=== PATIENT | female | born 2000 | race Caucasian/White ===

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

== ENCOUNTER 2019-01-06 09:02 | Emergency (ER) | payer BC, MEDICAID, OTHER ==
[2019-01-06 10:40] VITALS: BP 116/56
--- NOTE | 2019-01-06 11:10 | UC ---
Throat Pain/Nasal Wesley HPI - HPI Summary HPI Summary: 18-year-old female comes in with a 2 day history of sore throat. Pain is worse with swallowing. Some [id number] medicines to help some with the pain but then returns. Minimal rhinorrhea. No ear pain no cough no chest congestion no shortness of breath. Patient's had strep throat before and she states this feels like strep throat. - History of Current Complaint Chief Complaint: UCGeneralIllness Stated Complaint: ST Time Seen by Provider: 01/06/19 11:02 Hx Last Menstrual Period: 12/25/18 Pain Intensity: 5 - Allergies/Home Medications Allergies/Adverse Reactions: Allergies Allergy/AdvReac Type Severity Reaction Status Date / Time Penicillins Allergy Anaphylatic Verified 01/06/19 10:36 Shock Sulfa (Sulfonamide Allergy Anaphylatic Verified 01/06/19 10:36 Antibiotics) Shock ALL CILLINS Allergy Anaphylatic Uncoded 01/06/19 10:36 Shock Home Medications: Home Medications Ibuprofen TAB* [Advil TAB*] 200 mg PO Q6H PRN 01/06/19 [History Confirmed ] PMH/Surg Hx/FS Hx/Imm Hx Previously Healthy: Yes Other History Of: Negative For: Anticoagulant Therapy - Surgical History Surgical History: Yes Surgery Procedure, Year, and Place: right ACL - Family History Known Family History: Positive: Other - Vertigo Negative: Cardiac Disease, Hypertension, Diabetes - Social History Alcohol Use: None Substance Use Type: None Smoking Status (MU): Never Smoked Tobacco - Immunization History Vaccination Up to Date: Yes Review of Systems All Other Systems Reviewed And Are Negative: Yes Constitutional: Positive: Fever Skin: Positive: Negative Eyes: Positive: Negative ENT: Positive: Sore Throat, Nasal Discharge Respiratory: Positive: Negative Cardiovascular: Positive: Negative Gastrointestinal: Positive: Negative Motor: Positive: Negative Neurovascular: Positive: Negative Musculoskeletal: Positive: Negative Neurological: Positive: Negative Psychological: Positive: Negative Is Patient Immunocompromised?: No Physical Exam Triage Information Reviewed: Yes Appearance: No Pain Distress, Well-Nourished, Ill-Appearing - mild Vital Signs: Initial Vital Signs Temp 99.3 F 01/06/19 10:37 Pulse 105 01/06/19 10:37 Resp 15 01/06/19 10:37 BP 116/56 01/06/19 10:37 Pulse Ox 99 01/06/19 10:37 Vital Signs Reviewed: Yes Eye Exam: Normal Eyes: Positive: Conjunctiva Clear ENT: Positive: Pharyngeal erythema, TMs normal Neck exam: Normal Neck: Positive: Supple Respiratory: Positive: Lungs clear, Normal breath sounds, No respiratory distress Cardiovascular: Positive: Tachycardia Musculoskeletal Exam: Normal Musculoskeletal: Positive: Strength Intact, ROM Intact Neurological Exam: Normal Neurological: Positive: Alert, Muscle Tone Normal Psychological Exam: Normal Psychological: Positive: Age Appropriate Behavior Skin Exam: Normal Throat Pain/Nasal Course/Dx - Course Course Of Treatment: DISCUSSED VIRAL VERSES BACTERIAL INFECTION AND THE ROLE OF ANTIBIOTICS. THE PATIENT WISHES TO BE ON ANTIBIOTIC AT THIS TIME. - Differential Dx/Diagnosis Provider Diagnosis: Pharyngitis Discharge - Sign-Out/Discharge Documenting (check all that apply): Patient Departure All imaging exams completed and their final reports reviewed: No Studies - Discharge Plan Condition: Stable Disposition: HOME Prescriptions: Azithromyxin CHRISTIAN (NF) [Z-Christian (Zithromax) 250 mg tabs #6] 2 tab PO .TODAY, THEN 1 DAILY #6 tab Patient Education Materials: Pharyngitis (ED) Referrals: Jen Bauhg MD [Primary Care Provider] - Additional Instructions: FOLLOW UP WITH YOUR DOCTOR IF NOT COMPLETELY IMPROVED. GET RECHECKED FOR ANY WORSENING OF YOUR CONDITION OR QUESTIONS OR CONCERNS. - Billing Disposition and Condition Condition: STABLE Disposition: Home
== END 2019-01-06 11:14 | disposition home or self-care (01) ==
LOC: UCCORT 09:02
DX: J02.9 Acute pharyngitis, unspecified (principal); Z88.0 Allergy status to penicillin; Z88.2 Allergy status to sulfonamides; R09.89 Other specified symptoms and signs involving the circulatory and respiratory systems
CPT/HCPCS: 87651; 99212; G0463

== ENCOUNTER 2019-03-07 18:09 | Emergency (ER) | payer BC, MEDICAID ==
--- NOTE | 2019-03-07 18:46 | UC ---
Skin Complaint HPI - HPI Summary HPI Summary: 18 yo female presents with tick bite to left inner thigh. Noticed this morning. She removed it. Thinks it was on her since last night as she was outside a lot yesterday. Says the tick was not enlarged. Denies pain, fever - History of Current Complaint Time Seen by Provider: 03/07/19 18:46 Stated Complaint: TICK BITE Hx Obtained From: Patient Hx Last Menstrual Period: 12/25/18 Onset/Duration: Sudden Onset Current Severity: None - Allergy/Home Medications Allergies/Adverse Reactions: Allergies Allergy/AdvReac Type Severity Reaction Status Date / Time Penicillins Allergy Anaphylatic Verified 03/07/19 18:50 Shock Sulfa (Sulfonamide Allergy Anaphylatic Verified 03/07/19 18:50 Antibiotics) Shock ALL CILLINS Allergy Anaphylatic Uncoded 03/07/19 18:50 Shock Home Medications: Home Medications Bcp 1 tab PO DAILY 03/07/19 [History Confirmed 03/07/19] PMH/Surg Hx/FS Hx/Imm Hx - Additional Past Medical History Additional PMH: None Other History Of: Negative For: Anticoagulant Therapy - Surgical History Surgical History: Yes Surgery Procedure, Year, and Place: right ACL - Family History Known Family History: Positive: Other - Vertigo Negative: Cardiac Disease, Hypertension, Diabetes - Social History Occupation: Student Lives: With Family Alcohol Use: None Substance Use Type: None Smoking Status (MU): Never Smoked Tobacco - Immunization History Vaccination Up to Date: Yes Review of Systems All Other Systems Reviewed And Are Negative: Yes Constitutional: Positive: Negative Skin: Positive: Other - Tick bite Respiratory: Positive: Negative Cardiovascular: Positive: Negative Gastrointestinal: Positive: Negative Neurological: Positive: Negative Psychological: Positive: Negative Physical Exam - Summary Physical Exam Summary: GENERAL: NAD. WDWN. No pain distress. SKIN: Left anterior thigh: there is a 1.0cm diameter of mild erythema and edema with central 1mm area of superficial skin loss. No streaking, bleeding, or drainage. NECK: Supple. Nontender. No lymphadenopathy. CHEST: No accessory muscle use. Breathing comfortably and in no distress. CV: Pulses intact. Cap refill <2seconds NEURO: Alert. PSYCH: Age appropriate behavior. Triage Information Reviewed: Yes Vital Signs: Vital Signs: Temp Pulse Resp BP Pulse Ox 98.6 F 84 18 121/79 100 03/07/19 18:47 03/07/19 18:47 03/07/19 18:47 03/07/19 18:47 03/07/19 18:47 Vital Signs Reviewed: Yes Course/Dx - Course Course Of Treatment: Discussed that she is low risk for tick borne illness, but pt request prophylactic doxycycline treatment today. She was given 200mg in the clinic and advised to monitor for signs/symptoms of lyme and f/u if she develops these. - Diagnoses Provider Diagnosis: Tick bite Discharge - Sign-Out/Discharge Documenting (check all that apply): Patient Departure All imaging exams completed and their final reports reviewed: No Studies - Discharge Plan Condition: Stable Disposition: HOME Patient Education Materials: Tick Bite (ED) Referrals: Jen Baugh MD [Primary Care Provider] - Additional Instructions: If you develop a fever, shortness of breath, chest pain, new or worsening symptoms - please call your PCP or go to the ED. TICK BITE: You have been bitten by a tick. Once the tick is removed, these "bites" usually cause no problems. Tick fever, tick paralysis, [place] Spotted fever, and Lyme disease are uncommon -- but you should mention this tick bite to your doctor if you develop unusual symptoms in the next several weeks. If you develop any of the following, please see your physician promptly: (1) Fever, chills, or generalized malaise associated with a headache. (2) A red round area at the site of the bite (or elsewhere) (3) Joint pain, joint swelling or generalized weakness. (4) Redness, swelling, or drainage at the site of the bite. - Billing Disposition and Condition Condition: STABLE Disposition: Home
[2019-03-07 18:50] VITALS: BP 121/79
[2019-03-07] MEDS ORDERED: DOXYcycline CAP(*) 100 MG PO ONE (18:52)
== END 2019-03-07 19:00 | disposition home or self-care (01) ==
LOC: UCEAST 18:09
DX: S70.362A Insect bite (nonvenomous), left thigh, initial encounter (principal); W57.XXXA Bitten or stung by nonvenomous insect and other nonvenomous arthropods, initial encounter; Y92.9 Unspecified place or not applicable; Z88.0 Allergy status to penicillin; Z88.2 Allergy status to sulfonamides
CPT/HCPCS: 99212; A9270-GY; G0463

== ENCOUNTER 2021-06-21 02:03 | Inpatient (IN) ==
[2021-06-21 03:47] LABS: ABS Lymphocytes 1.7 10^3/ul (1.0-4.8); ABS Neutrophils 8.6 10^3/ul (1.5-7.7); Eosinophil % 0.3 %; Hematocrit 33 % (35-47); Hemoglobin 11.4 g/dL (12.0-16.0); Lymphocyte % 14.9 %; Mean Corpuscular HGB Conc 35 g/dL (31-36); Mean Corpuscular Hemoglobin 31 pg (27-31); Mean Corpuscular Volume 90 fL (80-97); Mean Platelet Volume 9.4 fL (7.4-10.4); Platelet Count 283 10^3/uL (150-450); Red Blood Count 3.63 10^6 /uL (3.70-4.87); Red Cell Distribution Width 14 % (10-15); White Blood Count 11.3 10^3/uL (3.5-10.8)
[2021-06-21] MEDS ORDERED: Buffered Lidocaine 1% SYRIN 1 ml INTRADERM ONE (04:00)
[2021-06-21] MEDS ORDERED: Lactated Ringers 1000 ml BAG 1,000 ML IV ONE ×2 (04:00→10:42)
[2021-06-21] MEDS ORDERED: Lactated Ringers 1000 ml BAG 1,000 ML IV SCH ×3 (04:00→22:00)
[2021-06-21 04:05] LABS: Albumin 3.6 g/dL (3.2-5.2); Albumin/Globulin Ratio 1.2 (1-3); Calcium 8.8 mg/dL (8.6-10.3); EGFR African American 180.1 (>60); EGFR Non-African American 148.9 (>60); Globulin 3.1 g/dL (2-4); Potassium 3.7 mmol/L (3.5-5.0); Total Bilirubin 0.3 mg/dL (0.2-1.0); Total Protein 6.7 g/dL (6.4-8.9)
[2021-06-21 04:06] LABS: Urine Benzodiazepine Screen None Detected (None Detect); Urine Opiates Screen None Detected (None Detect)
[2021-06-21] MEDS ORDERED: OBEPIDURAL 250 ML EPIDURAL ONE (09:42)
[2021-06-21] MEDS ORDERED: Phenylephrine 40 mcg/mL 10mL (400mcg) SYRINGE IV PUSH PRN ×2 (10:42)
[2021-06-21] MEDS ORDERED: Sodium Citrate/Citric Acid LIQ 15 ML UDC PO PRN (10:42)
[2021-06-21] MEDS ORDERED: OBEPIDURAL 250 ML EPIDURAL SCH (11:00)
[2021-06-21 11:31] LABS: Urine Appearance Cloudy; Urine Bilirubin Negative (Negative); Urine Blood Negative (Negative); Urine Color Straw; Urine Glucose Negative (Negative); Urine Ketones Negative (Negative); Urine Nitrite Negative (Negative); Urine Protein Negative (Negative); Urine Specific Gravity 1.006 (1.002-1.030); Urine Urobilinogen Negative (Negative)
[2021-06-21] MEDS ORDERED: Oxytocin in LR 20 UNITS/1,000 ML BAG IVPB SCH ×2 (13:00→22:00)
[2021-06-21] MEDS ORDERED: Glycerin ADULT 2.4 gm SUPP PR PRN (21:43)
[2021-06-21] MEDS ORDERED: Dibucaine 1% OINT 28.35 GM TUBE PR PRN (21:43)
[2021-06-21] MEDS ORDERED: Witch Hazel PAD JAR TOPICAL PRN (21:43)
[2021-06-22 06:12] LABS: ABS Lymphocytes 1.6 10^3/ul (1.0-4.8); ABS Monocytes 0.8 10^3/ul (0-0.8); ABS Neutrophils 13.3 10^3/ul (1.5-7.7); Eosinophil % 0.1 %; Hematocrit 29 % (35-47); Hemoglobin 9.8 g/dL (12.0-16.0); Mean Corpuscular HGB Conc 34 g/dL (31-36); Mean Corpuscular Hemoglobin 31 pg (27-31); Mean Corpuscular Volume 90 fL (80-97); Platelet Count 238 10^3/uL (150-450); Red Blood Count 3.16 10^6 /uL (3.70-4.87); Red Cell Distribution Width 15 % (10-15); White Blood Count 15.7 10^3/uL (3.5-10.8)
[2021-06-23 09:37] VITALS: BP 115/70
== END 2021-06-23 12:18 | disposition home or self-care (01) | DRG 560 ==
LOC: MCHOBOUT 02:03 → MCHOB 02:23
PROVIDERS: ADMIT Obstetrics & Gynecology; ATTEND Midwife